=== PATIENT | male | born 1950 | race Caucasian/White ===

== ENCOUNTER 2017-04-01 23:45 | Inpatient (IN) ==
[2017-04-02 01:09] LABS: Basophils % 0.5 %; Hematocrit 41.7 % (37.5-50.1); Hemoglobin 13.9 g/dL (12.9-16.9); Immature Granulocytes % 0.2 % (0-4); Lymphocytes % 36.6 %; Mean Corpuscular HGB Conc 33.3 g/dL (31.6-35.5); Mean Corpuscular Hemoglobin 28.9 pg (28.0-33.3); Mean Corpuscular Volume 86.7 fL (83.0-100.0); Mean Platelet Volume 9.6 fL (9.4-12.4); Monocytes # 0.5 K/mcL (0.0-1.3); Monocytes % 8.2 %; Platelet Count 216 K/mcL (140-400); Red Blood Count 4.81 M/mcL (4.19-5.50); Red Cell Distribution Width 12.5 % (11.5-14.5); Segmented Neutrophils % 54.5 %
[2017-04-02 01:27] LABS: BUN/Creatinine Ratio 13 (6-26); Blood Urea Nitrogen 14 mg/dL (8-23); Calcium 9.6 mg/dL (8.6-10.3); Carbon Dioxide 28 mEq/L (23-29); Chloride 107 mEq/L (98-107); Glucose 99 mg/dL (70-105); Osmolality,Calculated 293 (280-300); Sodium 141 mEq/L (136-145); eGFR For African Americans > 60 (> 60); eGFR For Non-African Americans > 60 (> 60)
--- NOTE | 2017-04-02 02:28 | Emergency Department Note ---
Disposition Clinical Impression: Chest pain Qualifiers: Chest pain type: precordial pain Qualified Code(s): R07.2 - Precordial pain Disposition: Admitted As Inpatient Condition: Good Chest Pain HPI - General Chief Complaint: ED Chest Pain Stated Complaint: "CP" Time Seen by Provider: 04/02/17 01:47 Source: patient Mode of arrival: private vehicle Limitations: no limitations Vital Signs Reviewed: Yes Nursing Notes Reviewed: Yes - History of Present Illness Pt complaint: chest pain Onset (ago): hour(s) Duration: intermittent, gradually worsening Onset: during rest Pain Location: substernal Severity: moderate, severe Severity scale (1-10): 9 Quality: aching, sharp Pain Radiation: none Improves with: nothing Worsens with: nothing Context: recent illness (last week GI virus, better now) Associated symptoms: Denies: nausea, vomiting, diaphoresis, dyspnea, sense of impending doom, syncope, palpitations, fever, cough, leg swelling Treatments prior to arrival chest pain: none - Related Data Allergies Allergy/AdvReac Type Severity Reaction Status Date / Time tb test Allergy See Uncoded 04/01/17 23:47 Comments All systems ED: reviewed and negative except as stated. Review of Systems: As Per HPI Constitutional: Denies: fever, chills, weakness Eyes: Denies: eye pain, eye discharge, vision change ENT ED: Denies: ear pain, throat pain, congestion, dysphagia Cardiovascular: Reports: as per HPI, chest pain. Denies: palpitations, dyspnea on exertion, orthopnea, edema, syncope Respiratory: Denies: cough, dyspnea, wheezes Gastrointestinal: Denies: abdominal pain, nausea, vomiting, diarrhea Musculoskeletal: Denies: back pain, neck pain, joint swelling, arthralgia Neurological: Denies: headache, weakness, numbness, paresthesias, confusion Endocrine: Denies: fatigue Hematological/Lymphatic: Denies: easy bleeding, easy bruising, lymphadenopathy Chest Pain PMH - Past Medical History Medical history: Reports: hypertension Surgical history: Reports: non-contributory Psychiatric history: Reports: no psych history - Social History Smoking Status: Never smoker Alcohol use: Reports: none Drug use: Reports: none Physical Exam - General Limitations: no limitations General appearance: alert, in no apparent distress - Head Head exam: atraumatic, normocephalic, normal inspection - Eye Eye exam: Present: normal appearance, PERRL. Absent: scleral icterus, conjunctival injection, periorbital swelling - ENT ENT exam: mucous membranes moist - Neck Neck exam: Present: normal inspection, full ROM, trachea midline. Absent: meningismus, lymphadenopathy - Chest Chest inspection: Present: normal inspection, symmetric chest wall rise. Absent : tenderness - Respiratory Respiratory exam: Present: normal lung sounds bilaterally. Absent: respiratory distress, wheezes, stridor, accessory muscle use, prolonged expiratory phase - Cardiovascular Cardiovascular exam: Present: regular rate, normal rhythm, normal heart sounds - Abdominal Exam Abdominal exam: Present: soft, Non-Tender. Absent: mass, pulsatile mass - Extremities Exam Extremities exam: Present: normal inspection, full ROM, normal capillary refill. Absent: tenderness, pedal edema - Back Exam Back exam: Present: normal inspection - Neurological Exam Neurological exam: Present: alert, oriented X3, CN II-XII intact, normal gait - Psychiatric Psychiatric exam: Present: normal affect, normal mood - Skin Skin exam: Present: warm, dry, intact, normal color Course Course Narrative: Patient presents from home for evaluation of midsternal chest pain that began yesterday evening when sitting in his recliner. He believes it was around 10 PM. It has been intermittent, non-radiating, sharp and not notably worse with exertion. He has had no syncope, cough, hemoptysis, and has no risk factors for PE. He had a stress test 3 years ago which was normal. Has never had a cath. Pain better after NTG. HEART score is 6. will admit for rule out. Case was discussed with Dr. Hess. She has had qeds-cf-yuhz time with the patient and agrees with the assessment, plan. Case was discussed with the hospitalist. He has accepted the patient for admission. Vital Signs Temperature 97.8 F 04/01/17 23:47 Pulse Rate 60 04/01/17 23:47 Respiratory Rate 20 04/01/17 23:47 Blood Pressure 173/84 04/01/17 23:47 O2 Sat by Pulse Oximetry 98 04/01/17 23:47 Temperature 97.8 F 04/01/17 23:47 Pulse Rate 60 04/01/17 23:47 Respiratory Rate 20 04/01/17 23:47 Blood Pressure 173/84 04/01/17 23:47 O2 Sat by Pulse Oximetry 98 04/01/17 23:47 Oxygen Delivery Oxygen Delivery Room Air Chest Pain - Medical Records Medical records reviewed: Yes I reviewed the patient's medical records. - Lab Data Lab results reviewed: Yes I reviewed the patient's lab results. Lab results narrative: Laboratory Last Values WBC 5.6 K/mcL (4.3-11.1) 04/02/17 00:39 RBC 4.81 M/mcL (4.19-5.50) 04/02/17 00:39 Hgb 13.9 g/dL (12.9-16.9) 04/02/17 00:39 Hct 41.7 % (37.5-50.1) 04/02/17 00:39 MCV 86.7 fL (83.0-100.0) 04/02/17 00:39 MCH 28.9 pg (28.0-33.3) 04/02/17 00:39 MCHC 33.3 g/dL (31.6-35.5) 04/02/17 00:39 RDW 12.5 % (11.5-14.5) 04/02/17 00:39 Plt Count 216 K/mcL (140-400) 04/02/17 00:39 MPV 9.6 fL (9.4-12.4) 04/02/17 00:39 Immature Gran % 0.2 % (0-4) 04/02/17 00:39 Seg Neutrophils % 54.5 % 04/02/17 00:39 Lymphocytes % 36.6 % 04/02/17 00:39 Monocytes % 8.2 % 04/02/17 00:39 Eosinophils % 0.0 % 04/02/17 00:39 Basophils % 0.5 % 04/02/17 00:39 Neutrophils # 3.0 K/mcL (1.6-8.9) 04/02/17 00:39 Lymphocytes # 2.0 K/mcL (0.6-4.6) 04/02/17 00:39 Monocytes # 0.5 K/mcL (0.0-1.3) 04/02/17 00:39 Eosinophils # 0.0 K/mcL (0.0-0.6) 04/02/17 00:39 Basophils # 0.0 K/mcL (0.0-0.2) 02/21/18 00:39 Sodium 141 mEq/L (136-145) 04/02/17 00:39 Potassium 4.0 mEq/L (3.5-5.1) 04/02/17 00:39 Chloride 107 mEq/L (98-107) 04/02/17 00:39 Carbon Dioxide 28 mEq/L (23-29) 04/02/17 00:39 BUN 14 mg/dL (8-23) 04/02/17 00:39 Creatinine 1.11 mg/dL (0.70-1.30) 04/02/17 00:39 Est GFR ( Amer) > 60 (> 60) 04/02/17 00:39 Est GFR (Non-Af Amer) > 60 (> 60) 04/02/17 00:39 BUN/Creatinine Ratio 13 (6-26) 04/02/17 00:39 Glucose 99 mg/dL (70-105) 04/02/17 00:39 Calculated Osmolality 293 (280-300) 04/02/17 00:39 Calcium 9.6 mg/dL (8.6-10.3) 04/02/17 00:39 Troponin I < 0.03 ng/mL (< 0.04) 04/02/17 00:39 Result diagrams: 04/02/17 00:39 04/02/17 00:39 Lab Results 04/02/17 04/02/17 04/02/17 Range/Units 00:39 00:39 00:39 WBC 5.6 (4.3-11.1) K/mcL RBC 4.81 (4.19-5.50) M/mcL Hgb 13.9 (12.9-16.9) g/dL Hct 41.7 (37.5-50.1) % MCV 86.7 (83.0-100.0) fL MCH 28.9 (28.0-33.3) pg MCHC 33.3 (31.6-35.5) g/dL RDW 12.5 (11.5-14.5) % Plt Count 216 (140-400) K/mcL MPV 9.6 (9.4-12.4) fL Immature Gran % 0.2 (0-4) % Seg Neutrophils % 54.5 % Lymphocytes % 36.6 % Monocytes % 8.2 % Eosinophils % 0.0 % Basophils % 0.5 % Neutrophils # 3.0 (1.6-8.9) K/mcL Lymphocytes # 2.0 (0.6-4.6) K/mcL Monocytes # 0.5 (0.0-1.3) K/mcL Eosinophils # 0.0 (0.0-0.6) K/mcL Basophils # 0.0 (0.0-0.2) K/mcL Sodium 141 (136-145) mEq/L Potassium 4.0 (3.5-5.1) mEq/L Chloride 107 (98-107) mEq/L Carbon Dioxide 28 (23-29) mEq/L BUN 14 (8-23) mg/dL Creatinine 1.11 (0.70-1.30) mg/dL Est GFR ( Amer) > 60 (> 60) Est GFR (Non-Af Amer) > 60 (> 60) BUN/Creatinine Ratio 13 (6-26) Glucose 99 (70-105) mg/dL Calculated Osmolality 293 (280-300) Calcium 9.6 (8.6-10.3) mg/dL Troponin I < 0.03 (< 0.04) ng/mL - Radiology Data Radiology results reviewed: Yes I reviewed the patient's radiology results. Chest X-Ray 04/02/17 23:50 IMPRESSION: No acute cardiopulmonary disease. D/ / Brien Xiao MD / Brien Xiao MD Interpreting Provider: Brien Xiao MD - EKG Data EKG attestation: Yes I reviewed and interpreted this EKG. EKG shows normal: sinus rhythm Rate: normal Rhythm: NSR [place]/QRS: normal When compared to previous EKG there are: previous EKG unavailable Interpretation: nonspecific ST-T wave changes - Core Measures AMI Core Measures Followed: Yes Heart Score - Score History: Moderately Suspicious EKG: Non Specific repolarisation Disturbance Age: Greater than 65 Risk Factors: 1-2 risk factors Troponin: 1-3x normal limit HEART Score Total: 6
[2017-04-02] MEDS ORDERED: Nitroglycerin 0.4 MG TAB.SUBL SL PRN (02:33)
[2017-04-02] MEDS ORDERED: Aspirin 325 MG TABLET PO ONE (02:35)
[2017-04-02] MEDS ORDERED: 0.9 % Sodium Chloride 1,000 ML IVC SCH (02:45)
--- NOTE | 2017-04-02 02:54 | Emergency Department Note ---
START Narrative - START START: For this encounter, I have reviewed the MEDICAL CODING AUDITOR or PA documentation, treatment plan, and medical decision making; and I have had face to face time with this patient. 66 year old male presents to the ED with complaint of chest pain and was recently admitted for chest pain rule out and had the whole workup short of having a cardiac catherization. We will do cardiopulmonary workup and genie admit to medicine
[2017-04-02] MEDS ORDERED: *HR* HYDROcodone/Acet 5/325 mg TABLET PO PRN (07:45)
[2017-04-02] MEDS ORDERED: Acetaminophen 325 MG TABLET PO PRN (07:45)
[2017-04-02] MEDS ORDERED: Naloxone 0.4 MG/ML INJ IVP PRN (07:45)
[2017-04-02] MEDS ORDERED: *HR* Promethazine 25 MG/ML VIAL IVP PRN (07:45)
[2017-04-02] MEDS: Aspirin Enteric Coated 81 MG Tablet PO SCH (09:20)
--- NOTE | 2017-04-02 09:41 | Internal Med History&Physical ---
Date of Encounter: 04/02/17 Time of Encounter: 08:30 Assessment and Plan (1) Chest pain Current visit: Yes Status: Acute Will admit the pt into Tele for observation Will place pt on immigration case worker check serial troponin so far negative troponin EKG reviewed by myself showed normal sinus rhythm, no ST and T changes however he does have new incomplete right bundle branch block.. No previous EKGs to compare will start pt on ASA, and Nitro PRN for chest pain Will check FLP in AM Will get stress test in AM since pt is high risk for ACS will get echocardiogram consulted cardiology for further evaluation - since patient does have angina equivalent chest pain Qualifiers: Chest pain type: unspecified Qualified Code(s): R07.9 - Chest pain, unspecified (2) Right bundle branch block Current visit: Yes Status: Acute Will check an echocardiograms (3) Hypertension Current visit: Yes Status: Acute Blood pressure slightly elevated in 140s he is not taking any medications at home Will monitor closely for now without any medications Qualifiers: Hypertension type: essential hypertension Qualified Code(s): I10 - Essential (primary) hypertension Internal Medicine - H&P: HPI Chief complaint: Chest pain Admitted From: Emergency Dept Plans for Post Hospital Care: Home History of present illness: Mr. Bajwa is a 66 year old male with no significant past medical history who present at emergency room complaining about intermittent chest pain, located substernally, more like tightness and pressure, 8 of 10 in severity from last 2 days. Patient did mention that has been having some discomfort for almost couple of weeks he thought about it was indigestion initially however from last 2 days it has been worsening. Right now he chest pain improved however he still feeling some discomfort at sub sternal region. Patient denied off any nausea vomiting, shortness of breath and diaphoresis. Patient denied of any GI/ symptoms Past Med Surg Social Fam HX - Past Medical History Medical history: hypertension Psychiatric history: no psych history - Past Surgical History Surgical History: non-contributory - Social History Smoking Status: Never smoker Smokeless Tobacco Status: No Alcohol use: none Drug use: none - Family History Mother History Unknown: Yes Father History Unknown: Yes Internal Medicine - H&P: Meds 3 Allergy/AdvReac Type Severity Reaction Status Date / Time tb test Allergy See Uncoded 04/01/17 23:47 Comments All Systems PM: A 10-system review of systems was performed and is negative for pertinent findings except as documented above in the HPI. Review of systems: All the systems are reviewed everything is benign except the systems and symptoms I mentioned in the history of present illness - Constitutional Vitals: Temp Pulse Resp BP Pulse Ox 98.0 F 66 18 148/82 93 04/02/17 07:19 04/02/17 07:19 04/02/17 07:19 04/02/17 07:19 04/02/17 07:19 General appearance: Present: cooperative, A&O X 3, answers questions appropriately - Head Head exam: Present: normal inspection, normocephalic - Neck Neck exam general surgery: Present: supple - Respiratory Respiratory exam: Present: decreased breath sounds. Absent: rales, respiratory distress, rhonchi, wheezes - Cardiovascular Cardiovascular exam: Present: RRR, +S1, +S2. Absent: systolic murmur, tachycardia - GI/Abdominal GI/Abdominal exam: Present: normal bowel sounds, soft. Absent: rebound, rigid, tenderness - Extremities Exam Extremities exam: Absent: calf tenderness, pedal edema, tenderness - Back Exam Back exam: Absent: CVA tenderness (L), CVA tenderness (R) - Neurological Exam Neurological exam: Present: alert. Absent: oriented X3 - Psychiatric Psychiatric exam: Present: normal affect, normal mood - Skin Skin exam: Absent: rash Internal Med - H&P Results - Labs CBC & Chem 7: 04/02/17 00:39 04/02/17 00:39 Labs: Cardiac Enzymes 04/02/17 Range/Units 07:57 Troponin I < 0.03 (< 0.04) ng/mL - Impressions ITS Impressions Chest X-Ray 04/02/17 23:50 IMPRESSION: No acute cardiopulmonary disease. D/ / Brien Xiao MD / Brien Xiao MD Interpreting Provider: Brien Xiao MD
[2017-04-02] MEDS ORDERED: Regadenoson 0.4 MG/5 ML SYRINGE IVP ONE (11:49)
[2017-04-03 06:37] LABS: Chol/HDL Ratio 4.3 (0-4.9)
[2017-04-03 06:58] VITALS: BP 110/70
[2017-04-03] MEDS: Aspirin Enteric Coated 81 MG Tablet PO SCH (08:04)
--- NOTE | 2017-04-03 10:11 | Discharge Summary ---
- NOTES TO OUTPATIENT PROVIDER Notes to Outpatient Provider: Work up for ACS including EKG, ECHO and nuclear stress test negative, elevated blood pressur yo arrival but improvee throughout stay. Not on medications for hypertension Date of Encounter: 04/03/17 Time of Encounter: 10:10 - Discharge Diagnosis (1) GERD (gastroesophageal reflux disease) Priority: Secondary Status: Chronic Comments: patient described GERD like symptoms this morning,he is already on a PPI, continue same at home educated on dietary modification Qualifiers: Esophagitis presence: without esophagitis Qualified Code(s): K21.9 - Gastro -esophageal reflux disease without esophagitis (2) Chest pain Priority: Primary Status: Acute Comments: chest pain is now right sided and reproducible, worsened when patient laid on his right side Possibly musculoskeletal EKG with IRBB, ECHO is normal for age and stress test is negative Lipid panel is unremarkable patient with very minimal risk factors for CAD Of note, his blood pressure was also elevated on arrival, with SBP 170s However, patient states he has not been non medications and his blood pressure has improved without medications Will defer management of HTN to PCP Patient is educated Qualifiers: Chest pain type: other chest pain Qualified Code(s): R07.89 - Other chest pain; R07.8 - Other chest pain (3) Hypertension Priority: Secondary Status: Chronic Qualifiers: Hypertension type: essential hypertension Qualified Code(s): I10 - Essential (primary) hypertension (4) Right bundle branch block Priority: Secondary Status: Chronic Hospital course: Mr. Bajwa is a 66 year old male with PMH of HLD who was admitted for chest pain evaluation He is seen and evaluated this morning, with no new symptoms, and chest pain has resolved Work up is negative for ischemic event, CXR is unremarkable See individual diagnoses for details Medically and clinically stable to be discharged home Patient educated on plan, verbalized understanding Discharge discussed with: patient - Time Spent with Patient Total time spent providing and/or coordinating discharge services: Less than 30 minutes - Discharge Medications Home Medications: Cholecalciferol (D-3) [Vitamin D] 1,000 unit PO DAILY 04/03/17 [History] Omeprazole Magnesium [Prilosec Otc] 20 mg PO DAILY 04/03/17 [History] Simvastatin [Zocor] 40 mg PO HS 04/03/17 [History] Allergies/Adverse Reactions: 3 Allergy/AdvReac Type Severity Reaction Status Date / Time tb test Allergy See Uncoded 04/01/17 23:47 Comments Date of admission: 04/03/17 08:49 Primary care physician: PCP [place] Discharging clinician: Drake Flores Anticipated date of discharge: 04/03/17 - Constitutional Vitals: Temp Pulse Resp BP Pulse Ox 97.9 F 63 16 110/70 94 04/03/17 06:56 04/03/17 06:56 04/03/17 06:56 04/03/17 06:56 04/03/17 08:08 General appearance: Present: cooperative, A&O X 3, pleasant, no acute distress, answers questions appropriately - Head Head exam: Present: atraumatic, normocephalic - Eye Eye exam: Present: PERRL, conjuntiva pink, sclera anicteric Pupils: Present: PERRL - Neck Neck exam general surgery: Present: supple, trachea midline. Absent: lymphadenopathy - Respiratory Respiratory exam: Present: CTAB. Absent: accessory muscle use, rales, rhonchi, wheezes - Cardiovascular Cardiovascular exam: Present: RRR, +S1, +S2. Absent: diastolic murmur, gallop, rubs, systolic murmur - GI/Abdominal GI/Abdominal exam: Present: normal bowel sounds, soft, no peritoneal signs. Absent: distended, tenderness - Extremities Exam Extremities exam: Present: warm, radial pulses palpable and symmetrical. Absent : calf tenderness, cyanotic, pedal edema - Neurological Exam Neurological exam: Present: alert, CN II-XII intact, oriented X3, no focal deficits. Absent: pronater drift, facial droop, speech deficit - Skin Skin exam: Present: dry, intact - Patient Status Disposition: Home, Self-Care Condition: Good Functional capacity at discharge: independent ambulation Overall status at discharge: patient is back to baseline - Discharge Instructions Instructions: Chest Pain (DC), Chronic Hypertension (DC) Follow Up With: Micah Madrid MD [Family Provider] - [place],PCP [Primary Care Provider] - 04/14/17 9:45 am - Diet and Activity Activity: resume usual activities as tolerated Diet: low salt diet
--- NOTE | 2017-04-03 16:02 | Electrocardiograph Report ---
[address] [address] Test Date: 2017-04-01 Pat Name: Migue Bajwa Department: 104 Room: 3B Gender: M Web Systems Developer: DONNELL : 1950 Requested By: Helen Hess Order Number: [id number] Reading MD: Viviana Navarro Measurements Intervals [place] Rate: 64 P: 35 OK: 174 QRS: 38 QRSD: 88 T: 45 QT: 372 QTc: 381 Interpretive Statements SINUS RHYTHM POSSIBLE RIGHT VENTRICULAR CONDUCTION DELAY Electronically Signed On 04-03-2017 16:00:42 EST by Viviana Navarro
== END 2017-04-03 12:36 | disposition home or self-care (01) | DRG 311 ==
LOC: 3BNU 23:45 → EMEROO 23:45 → SUATTDRO 04-02 03:37 → 3BNU 04-02 03:52
PROVIDERS: ADMIT Internal Medicine; ATTEND Internal Medicine